=== PATIENT | male | born 1995 | race Caucasian/White ===

== ENCOUNTER 2018-12-10 13:15 | Emergency (ER) | payer OTHER, SELFPAY ==
[2018-12-10 13:16] VITALS: BP 130/81; PULSE 84; RESP 17; TEMP 36.8; O2SAT 98; BMI 25.0
[2018-12-10 14:46] LABS: Absolute Lymphocyte Count 2.73 X10^3/ul (0.83-4.51); Basophil# 0.02 X10^3/uL; Basophil% 0.3 % (0-1); Eosinophil# 0.26 X10^3/uL; Eosinophils% 3.5 % (0-5); Hemoglobin 15.1 g/dl (13.0-16.5); Lymphocyte # 2.73 X10^3/ul (4.0); Mean Corp Hgb Conc 35.1 g/gl (32-36); Mean Corpuscular Hgb 30.3 pg (27.0-32.0); Mean Corpuscular Volume 86.3 fL (80-94); Monocyte# 0.38 X10^3/uL; Monocyte% 5.1 % (0-10); Neutrophil # 3.98 X10^3/uL (2.7-7.7); Platelet Count 169 K/mm3 (150-450); RBC Distribution Width CV 11.9 % (11.6-14.6); RBC Distribution Width SD 37.5 fl (35.1-43.9); Red Blood Count 4.98 M/mm3 (4.6-6.2); White Blood Count 7.4 K/mm3 (4.4-11.0)
[2018-12-10] MEDS: Ketorolac 30 MG/ML Syringe IV (14:51)
[2018-12-10] MEDS: Famotidine 20 MG Tablet 40 MG PO (14:51)
[2018-12-10 14:52] LABS: POSITIVE COUNT NO; POSITIVE DIFFERENTIAL NO; POSITIVE MORPHOLOGY NO
[2018-12-10 15:00] LABS: AST(SGOT) 26 U/L (15-37); Alanine Aminotransfer ALT/SGPT 49 U/L (16-61); Albumin, Serum 4.5 g/dL (3.2-5.0); Alkaline Phosphatase 65 U/L (45-117); Anion Gap 8 (5-15); BUN 12 mg/dL (7-18); BUN/Creat Ratio 13.3 RATIO (10-20); Bilirubin, Direct 0.18 mg/dL (0.00-0.30); Calcium,Total 8.8 mg/dL (8.5-10.1); Chloride 104 mmol/L (98-107); EST Glomerular Filtration Rate 110 mL/min (>60); Est Glom Filt Rate - Afr Amer 134 mL/min (>60); Estimated Creatinine Clearance 140.11 ml/min; Glucose 99 mg/dL (74-106); Lipase 134 U/L (73-393); Potassium 3.5 mmol/L (3.5-5.1); Protein, Total 7.5 g/dL (6.4-8.2); Sodium Level 142 mmol/L (136-145)
--- NOTE | 2018-12-10 15:28 | ED.VISSUMM ---
- ER Visit Summary Date of Service: 12/10/18 Chief Complaint: Abdominal pain and neck pain History of Present Illness: The patient is a 23 M who reports a history of an abnormal HIDA scan in 2013. He states he changed his diet and seemed to get better following this. He is now had recurrent right upper quadrant abdominal pain over the past couple months it is worse after eating. He also describes dyspepsia. He denies fever or chills. He is also complaining of neck pain after sleeping on a couple weeks ago that is has not gone away. He has no pain radiated to his arms. Patient is currently taking [id number] Nexium. Physical Examination: Vital signs are unremarkable. Patient sitting upright in bed no acute distress. Head neck examination was no midline cervical tenderness. He has mild tenderness in the lower cervical paraspinal muscles. Heart is regular rate and rhythm. Lungs sounds are clear. Abdomen is soft with no tenderness at this time. Hypoactive bowel sounds are present throughout. Test Results: CBC and chemistry studies are unremarkable. LFTs and lipase normal. Emergency Department Course and Treatment: Patient was given Toradol and Pepcid here. On repeat evaluation patient is resting comfortably. He will be given a prescription for naproxen, Prilosec, and Flexeril. He is referred to establish a local primary care physician. If he continues to have upper abdominal pain he may require outpatient ultrasound or HIDA scan. Treatment Plan: [] Disposition: Discharge Impression: 1. Epigastric pain 2. Cervical neck strain This note was generated with [employer] dictation software. It may contain incorrect words, spelling, and punctuation that were not noted in review of the chart prior to signing ED Disposition - Plan for ED Patient: Referrals: Care Physician,No Primary [Primary Care Provider] -
--- NOTE | 2018-12-10 15:30 | ED.DEP ---
ED Disposition - Plan for ED Patient: Disposition: Home or Assisted Living Instructions: ED Epigastric Pain [facility], ED Sprain Strain Neck Prescriptions: Naproxen [Naprosyn] 500 mg PO BID PRN PRN #20 tablet PRN Reason: Pain Omeprazole [Prilosec] 20 mg PO DAILY #30 capsule Cyclobenzaprine [Flexeril] 10 mg PO TID PRN #20 tablet PRN Reason: Muscle Spasm Referrals: Olegario Feldman III, MD [STAFF PHYSICIAN] - 1-2 Weeks
[2018-12-10 15:39] VITALS: BP 122/62; PULSE 59; RESP 17; O2SAT 98
== END 2018-12-10 15:40 | disposition home or self-care (01) ==
PROVIDERS: Emergency Provider Emergency Medicine
DX: R10.13 Epigastric pain (principal); S16.1XXA Strain of muscle, fascia and tendon at neck level, initial encounter; X58.XXXA Exposure to other specified factors, initial encounter; Y93.9 Activity, unspecified; Y92.89 Other specified places as the place of occurrence of the external cause; Y99.9 Unspecified external cause status
CPT/HCPCS: 80048; 80076; 83690; 85025; 96374; 99283; A4216